=== PATIENT | male | born 1960 | race Hispanic/Latino ===

== ENCOUNTER 2018-07-19 13:57 | Emergency (ER) | payer BC, OTHER ==
[~2018-07-19 13:57] MED LIST: Iopamidol 370 76% 100 ML VIAL ONE
[2018-07-19 14:44] LABS: #Basophils 0.1 thou/uL (0.0-0.2); #Eosinphils 0.1 thou/uL (0.0-0.7); #Lymphocytes 2.6 thou/uL (1.20-3.40); #Monocytes 0.6 thou/uL (0.11-0.59); #Neutrophils 7.4 thou/uL (1.40-6.50); %Basophils 1.1 % (0.0-1.0); %Eosinophils 0.8 % (0.0-10.0); %Lymphocytes 24.1 % (21.0-51.0); %Monocytes 5.6 % (0.0-10.0); %Neutrophils 68.5 % (42.0-75.0); Hemoglobin 16.3 g/dL (14.0-18.0); Mean Corpuscular HGB CONC 32.8 g/dL (32.0-36.0); Mean Corpuscular Hemoglobin 27.5 pg (27.0-31.0); Mean Corpuscular Volume 83.8 fL (78.0-98.0); Platelet Count 248 thou/uL (130-400); Red Blood Cell (RBC) Count 5.93 mill/uL (4.70-6.10); White Blood Cell (WBC) Count 10.7 thou/uL (4.8-10.8)
[2018-07-19 14:49] LABS: INR-International Normal Ratio 1.1; PTT 42.6 SEC (22.9-36.1); Prothrombin Time 13.9 SEC (12.0-14.7)
[2018-07-19 14:56] LABS: Anion Gap 19 mmol/L (10-20); BUN (Urea Nitrogen) 18 mg/dL (8.4-25.7); CK (CPK) 42 U/L (30-200); Calc. Creatinine Clearance 0 mL/min (70-130); Calcium 10.2 mg/dL (7.8-10.44); Carbon Dioxide 18 mmol/L (22-29); Chloride 103 mmol/L (98-107); Estimated GFR-MDRD 76; Glucose 139 mg/dL (70-105); Potassium 4.1 mmol/L (3.5-5.1); Sodium 136 mmol/L (136-145)
--- NOTE | 2018-07-19 15:35 | CT ---
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 Contrast enhanced CTA of the brain performed. 2D and 3D reconstructed images are obtained in an [employer] 3D workstation. The internal carotid arteries bilaterally are patent. The right and left anterior cerebral arteries a nd middle cerebral arteries are patent. The right and left vertebral artery as well as the basilar artery and posterior cerebral arteries are patent. IMPRESSION: No evidence of intracranial vascular occlusion seen. POS: ARUNA
--- NOTE | 2018-07-19 15:38 | CT ---
CONTRAST ENHANCED CAROTID CTA: 07/19/18 HISTORY: Factor V deficiency. History of transient ischemic attack. Contrast enhanced CTA carotid arteries performed. 2D and 3D reconstructed images performed on an [employer] 3D workstation. The aortic arch is unremarkable. The right brachiocephalic artery is patent. The right and left comm on carotid and internal carotid arteries are patent without evidence of significant stenosis or disea se. The right and left vertebral arteries as well as the basilar artery are patent. IMPRESSION: Unremarkable carotid CTA. POS: AURNA
== END 2018-07-19 16:11 | disposition home or self-care (01) ==
LOC: SCSER 13:57
DX: M54.2 Cervicalgia (principal); R53.1 Weakness; E11.9 Type 2 diabetes mellitus without complications; E78.5 Hyperlipidemia, unspecified; Z86.73 Personal history of transient ischemic attack (TIA), and cerebral infarction without residual deficits; Z86.711 Personal history of pulmonary embolism; Z79.899 Other long term (current) drug therapy; Z79.84 Long term (current) use of oral hypoglycemic drugs
CPT/HCPCS: 70496; 70498; 80048; 82550; 84484; 85025; 85610; 85730; 93005; Q9967